=== PATIENT | female | born 1995 | race Two or more races ===

== ENCOUNTER 2019-05-13 15:45 | Observation (INO) | payer MEDICAID | END 2019-05-13 18:40 | disposition home or self-care (01) | DRG 566 | LOC: LDRP 15:45 | PROVIDERS: ADMIT Obstetrics & Gynecology; ATTEND Obstetrics & Gynecology | DX: O24.419 Gestational diabetes mellitus in pregnancy, unspecified control (principal); O36.8190 Decreased fetal movements, unspecified trimester, not applicable or unspecified; Z3A.36 36 weeks gestation of pregnancy | CPT/HCPCS: 59025; 76818; 81002; G0378 ==

== ENCOUNTER 2019-05-23 08:55 | Observation (INO) | payer MEDICAID | END 2019-05-27 14:14 | disposition left against medical advice (07) | DRG 566 | LOC: LDRP 05-27 11:28 | PROVIDERS: ADMIT Obstetrics & Gynecology; ATTEND Obstetrics & Gynecology | DX: O26.893 Other specified pregnancy related conditions, third trimester (principal); Z3A.38 38 weeks gestation of pregnancy | CPT/HCPCS: 76818; G0378 ==

== ENCOUNTER 2019-05-31 09:47 | Observation (INO) | payer MEDICAID ==
[2019-05-31] MEDS ORDERED: PREN-96 PO (10:11)
== END 2019-05-31 10:45 | disposition home or self-care (01) | DRG 566 ==
LOC: LDRP 09:47
PROVIDERS: ADMIT Obstetrics & Gynecology; ATTEND Obstetrics & Gynecology
DX: O24.410 Gestational diabetes mellitus in pregnancy, diet controlled (principal); Z3A.39 39 weeks gestation of pregnancy
CPT/HCPCS: 59025; 81002; 82962; G0378

== ENCOUNTER 2019-06-01 09:20 | Inpatient (IN) | payer MEDICAID ==
[~2019-06-01] VITALS: Ht 154.9 cm; Wt 79.8 kg
[~2019-06-01 09:20] MED LIST: PREN-96 PO
[2019-06-01] MEDS ORDERED: LACTATED RINGER'S 1,000 ML IV SCH (10:00)
[2019-06-01] MEDS ORDERED: NALBUPHINE HCL 10 MG/1ml INJECTION IV PRN (10:00)
[2019-06-01] MEDS ORDERED: LIDOCAINE 2%HCL (LOCAL ANESTH.) INJ 20ML MDV ID PRN (10:00)
[2019-06-01] MEDS ORDERED: PENICILLIN G POT 5MIL/D5 50ML 50 ML IV ONE (10:00)
[2019-06-01] MEDS ORDERED: WITCH HAZEL-GLYCERIN PAD TOP PRN (10:00)
[2019-06-01] MEDS ORDERED: LACT. RINGERS/OXYTOCIN 20UNITS 1,000 ML IV SCH (10:00)
[2019-06-01] MEDS ORDERED: PHISODERM TOP SOLN 240ML BTL TOP PRN (10:00)
[2019-06-01] MEDS ORDERED: DERMOPLAST 60ML BOTTLE TOP PRN (10:00)
[2019-06-01 11:09] LABS: Basophils # (auto) 0.1 uL; Basophils % (auto) 0.7 % (0.0-2.0); Eosinophils # (auto) 0.1 uL; Eosinophils % (auto) 1.1 % (0.0-7.0); Hematocrit 34.1 % (36.0-46.0); Hemoglobin 11.1 g/dL (12.2-16.2); Lymphocytes # (auto) 1.9 uL; Lymphocytes % (auto) 16.2 % (10.0-50.0); Mean Corpuscular Hemoglobin 26.8 pg (28.0-32.0); Mean Corpuscular Hgb Conc. 32.5 g/dL (32.0-36.0); Mean Corpuscular Volume 82.3 fL (80.0-100.0); Monocytes # (auto) 0.7 uL; Monocytes % (auto) 6.1 % (0.0-12.0); Neutrophils # (auto) 8.7 uL; Neutrophils % (auto) 75.9 % (37.0-80.0); Platelet Count (auto) 192 10^3/uL (140-450); Red Blood Cells 4.14 10^6/uL (4.0-5.20); White Blood Cell 11.4 10^3/uL (4.4-10.8)
[2019-06-01 11:13] LABS: Urine Bacteria NONE SEEN /hpf (None Seen); Urine Blood Negative /uL (Negative); Urine Specific Gravity 1.018 (1.001-1.035); Urine WBC 3 /hpf (0 - 5)
[2019-06-01 11:14] LABS: Albumin 2.3 g/dL (3.4-5.0); Calcium 8.6 mg/dL (8.5-10.1); Potassium 3.7 mmol/L (3.5-5.1)
[2019-06-01 11:15] LABS: Alcohol, Urine < 3.0 mg/dL (0-5); Amphetamine Screen, Urine NEGATIVE (NEGATIVE); Barbiturate Scree,Urine NEGATIVE (NEGATIVE); Benzodiazephine Screen, Urine NEGATIVE (NEGATIVE); Cannabinoid Screen, Urine NEGATIVE (NEGATIVE); Cocaine Screen, Urine NEGATIVE (NEGATIVE); Opiate Scree,Urine NEGATIVE (NEGATIVE); Phencyclidine Screen, Urine NEGATIVE (NEGATIVE)
[2019-06-01 11:17] LABS: BUN/Creatinine Ratio 10.8; Bilirubin, Total 0.2 mg/dL (0.2-1.0); Total Protein 6.4 g/dL (6.4-8.2)
[2019-06-01 11:24] LABS: INR < 0.93 (0.9-1.15); Partial Thromboplastin Time 26.8 sec (23.64-32.05)
[2019-06-01] MEDS: PENICILLIN G POTASSIUM 2,500,000 UNITS in D5W 5% 50 ML IV SCH ×3 (15:23→22:43)
[2019-06-01] MEDS ORDERED: fentaNYL CITRATE 100 MCG/2 ML VL IV ONE (17:30)
[2019-06-01] MEDS ORDERED: LIDOCAINE HCL 2 %PF INJ 10ML AMP IJ ONE (17:30)
[2019-06-01] MEDS ORDERED: fentaNYL W ROPIVACAINE 150 ML EPI SCH (17:30)
[2019-06-01] MEDS ORDERED: NALOXONE HCL 0.4 MG/ML VIAL IV ONE (17:30)
[2019-06-01] MEDS ORDERED: ePHEDrine SULFATE 50 MG/ML AMP IV ONE (17:30)
[2019-06-02 07:07] VITALS: BP 119/62
--- NOTE | 2019-06-02 07:08 | NUR ---
Ambulation: Patient OOB with standby assistance by RN. Patient ambulated to bathroom with steady gait. Patient able to void without difficulty. [facility]icare teaching provided with returned demonstration by patient. Clean gown provided and bed linen changed. Patient ambulated back to bed with steady gait and no distress noted.
[2019-06-02] MEDS ORDERED: ACETAMINOPHEN 325 MG TAB PO PRN (07:15)
[2019-06-02 11:00] VITALS: BP 101/70
--- NOTE | 2019-06-02 14:03 | NUR ---
Update given to Dr. Wyman patient had a temp at 0200 of 100.8 and per night RN Jovita Ricks Lease Picker aware. Patient received medication pcn time 4 doses for positive gbs. read all temps to . New orders received d/c all medication penicillin.
[2019-06-02 15:00] VITALS: BP 105/70
[2019-06-02] MEDS: IBUPROFEN 600 MG TAB PO PRN (15:15)
[2019-06-02 22:58] VITALS: BP 109/71
[2019-06-03 02:59] VITALS: BP 94/55
--- NOTE | 2019-06-03 03:05 | NUR ---
Temperature Patient gave to viable baby girl at 0305. At 0202, Jovita JAVIERM was at bedside pushing with this RN anticipating vaginal delivery. Pt c/o "feeling hot", CNM asks for temp to be taken on patient. Temp was 100.8. CNM aware of temp and pt receiving penicillin for positive GBS status. No further orders received.
--- NOTE | 2019-06-03 06:30 | NUR ---
Discharge: Discharge instructions given as ordered. Pt encouraged to follow up with SNUFF DRIER as instructed. All questions and concerns addressed. Patient verbalized understanding. Medication reconciliation completed and copy given to patient. Patient encouraged to prepare to depart unit.
[2019-06-03 07:00] VITALS: BP 111/65
[2019-06-03] MEDS: IBUPROFEN 600 MG TAB PO PRN (07:12)
--- NOTE | 2019-06-03 07:12 | NUR ---
PT MEDICATED WITH MOTRIN 600 MG PO PER ORDERS FOR PAIN TO PERINEUM RATING 5/10.
--- NOTE | 2019-06-03 09:50 | NUR ---
Discharge: Patient taken to vehicle via ambulation refusing wheelchair with all personal belongings, accompanied by staff and family member. No distress noted at time of departure, no adverse changes in status since initial assessment.
[2019-06-03 11:08] LABS: RPR Non Reactive (Non Reactive)
== END 2019-06-03 09:50 | disposition home or self-care (01) | DRG 560 ==
LOC: LDRP 09:20
PROVIDERS: ADMIT Obstetrics & Gynecology; ATTEND Obstetrics & Gynecology
PROC: 10E0XZZ Delivery of Products of Conception, External Approach (ICD-10-PCS; principal; 2019-06-02)
PROC: 0UQGXZZ Repair Vagina, External Approach (ICD-10-PCS; 2019-06-02)
PROC: 3E0R3BZ Introduction of Anesthetic Agent into Spinal Canal, Percutaneous Approach (ICD-10-PCS; 2019-06-02)
PROC: 00HU33Z Insertion of Infusion Device into Spinal Canal, Percutaneous Approach (ICD-10-PCS; 2019-06-02)
DX: O69.81X0 Labor and delivery complicated by cord around neck, without compression, not applicable or unspecified (principal); O71.4 Obstetric high vaginal laceration alone; O42.02 Full-term premature rupture of membranes, onset of labor within 24 hours of rupture; O99.824 Streptococcus B carrier state complicating childbirth; Z37.0 Single live birth; Z3A.39 39 weeks gestation of pregnancy
CPT/HCPCS: 36415; 51702; 59025; 62282; 80053; 80307; 81001; 82962; 84112; 85025; 85610; 85730; 86592; 86850; 86900; 86901; 96361; 96366; G0378; J2540; J2590; J3010; J7060

== ENCOUNTER 2020-09-05 10:05 | Observation (INO) | payer MEDICAID | END 2020-09-05 11:45 | disposition home or self-care (01) | LOC: LDRP 10:05 | PROVIDERS: ADMIT Obstetrics & Gynecology; ATTEND Obstetrics & Gynecology | DX: O48.0 Post-term pregnancy (principal); Z3A.40 40 weeks gestation of pregnancy | CPT/HCPCS: 59025; 76818; 81002; G0378 ==

== ENCOUNTER 2020-09-07 09:09 | Observation (INO) | payer MEDICAID ==
[2020-09-07] MEDS ORDERED: FERR-20 PO ×2 (09:54)
== END 2020-09-07 10:41 | disposition home or self-care (01) ==
LOC: LDRP 09:09
PROVIDERS: ADMIT Obstetrics & Gynecology; ATTEND Obstetrics & Gynecology
DX: O48.0 Post-term pregnancy (principal); O62.9 Abnormality of forces of labor, unspecified; Z3A.40 40 weeks gestation of pregnancy
CPT/HCPCS: 59025; 76818; 81002; G0378

== ENCOUNTER 2020-09-08 22:47 | Inpatient (IN) | payer MEDICAID ==
[~2020-09-08] VITALS: Ht 154.9 cm; Wt 78.9 kg
[~2020-09-08 22:47] MED LIST changes: +FERR-20 PO
[2020-09-08] MEDS ORDERED: BUTORPHANOL TARTRATE 2 MG/1 ML VIAL IV PRN (23:15)
[2020-09-08] MEDS ORDERED: LACTATED RINGER'S 1,000 ML IV SCH ×2 (23:15)
[2020-09-08] MEDS ORDERED: LIDOCAINE 2%HCL (LOCAL ANESTH.) INJ 20ML MDV IJ ONE (23:15)
[2020-09-08] MEDS ORDERED: PHISODERM TOP SOLN 240ML BTL TOP PRN (23:15)
[2020-09-08] MEDS ORDERED: WITCH HAZEL-GLYCERIN PAD TOP PRN (23:15)
[2020-09-08] MEDS ORDERED: DERMOPLAST 60ML BOTTLE TOP PRN (23:15)
[2020-09-08] MEDS ORDERED: TERBUTALINE SULFATE 1 MG/ML 1ML VIAL SC ONE ×2 (23:15)
[2020-09-08 23:53] LABS: Basophils % (auto) 0.3 % (0.0-2.0); Eosinophils # (auto) 0 10 ^3/uL (0-0.8); Mean Corpuscular Volume 72.8 fL (80.0-100.0); Nucleated Red Blood Cells % 0.1 %; Platelet Count (auto) 248 10^3/uL (140-450); White Blood Cell 17.2 10^3/uL (4.4-10.8)
[2020-09-08 23:55] LABS: Basophils # (auto) 0 10 ^3/uL (0-0.2); Hematocrit 28.3 % (36.0-46.0); Hemoglobin 8.9 g/dL (12.2-16.2); Lymphocytes % (auto) 5.7 % (10.0-50.0); Mean Corpuscular Hemoglobin 22.8 pg (28.0-32.0); Mean Corpuscular Hgb Conc. 31.3 g/dL (32.0-36.0); Monocytes # (auto) 0.7 10 ^3/uL (0-1.3); Monocytes % (auto) 4.1 % (0.0-12.0); Neutrophils # (auto) 15.4 10 ^3/uL (1.6-8.6); Neutrophils % (auto) 89.9 % (37.0-80.0); Red Blood Cells 3.89 10^6/uL (4.0-5.20); Red Cell Distribution Width 18.2 % (11.8-14.3)
[2020-09-09 00:11] LABS: Albumin 2.4 g/dL (3.4-5.0); Calcium 8.2 mg/dL (8.5-10.1); Potassium 3.7 mmol/L (3.5-5.1)
[2020-09-09 00:14] LABS: Bilirubin, Total 0.5 mg/dL (0.2-1.0); INR 0.97 (0.9-1.15)
[2020-09-09] MEDS ORDERED: LIDOCAINE HCL 2 %PF INJ 10ML AMP IJ ONE (00:15)
[2020-09-09] MEDS ORDERED: LACTATED RINGER'S 1,000 ML IV ONE ×2 (00:15→01:45)
[2020-09-09] MEDS ORDERED: fentaNYL CITRATE 100 MCG/2 ML VL IV ONE ×2 (00:15→01:45)
[2020-09-09] MEDS ORDERED: ROPIVACAINE HCL 200 ML EPI SCH ×3 (00:15→01:45)
[2020-09-09] MEDS ORDERED: NALOXONE HCL 0.4 MG/ML VIAL IV ONE ×2 (00:15→01:45)
[2020-09-09] MEDS ORDERED: ePHEDrine SULFATE 50 MG/ML AMP IV ONE ×2 (00:15→01:45)
[2020-09-09] MEDS ORDERED: fentaNYL CITRATE 100 MCG/2 ML VL ONE (01:09)
[2020-09-09] MEDS ORDERED: LIDOCAINE 2%HCL (LOCAL ANESTH.) INJ 20ML MDV IJ ONE (01:45)
[2020-09-09] MEDS ORDERED: ONDANSETRON HCL 4 MG/2 ML VIAL IV PRN (02:45)
[2020-09-09 04:14] LABS: Urine Bacteria FEW /hpf (None Seen); Urine Blood Negative /uL (Negative); Urine Mucus FEW (None Seen); Urine Specific Gravity 1.032 (1.001-1.035); Urine WBC 1 /hpf (0 - 5)
[2020-09-09] MEDS ORDERED: LACT. RINGERS/OXYTOCIN 20UNITS 1,000 ML IV ONE (06:00)
--- NOTE | 2020-09-09 06:00 | NUR ---
RECEIVED REPORT, ASSUMED CARE
--- NOTE | 2020-09-09 06:10 | NUR ---
REVIEWED PLAN OF CARE, DISCUSSED GOAL, PAIN SCALE AND AT LENGTH . AT BREAST AND 7/10 LATCH SCORE. PT IS UNCLEAR ON LATCH , PLACEMENT OF [place]BORNS MOUTH. REINFORCEMENT PROVIDED.
--- NOTE | 2020-09-09 07:00 | NUR ---
PATIENT COMPLAINS OF RIGHT FLANK PAIN, LOWER RIGHT ABD PAIN, PAIN AT THE SITE OF HER EPIDURAL. REPOSITIONING , WARM BLANKETS, WATER PROVIDED.
[2020-09-09] MEDS ORDERED: ACETAMINOPHEN 325 MG TAB PO PRN (07:45)
[2020-09-09] MEDS: IBUPROFEN 600 MG TAB PO PRN ×2 (07:45→15:39)
--- NOTE | 2020-09-09 07:45 | NUR ---
DR ZAVALA ON UNIT AND SBAR REPORTED PT C/O PAIN 5-9/10 RIGHT FLANK, AND LOWER RIGHT ABD, 99.9 ORAL TEMPERATURE, WBC 17.4. ORDERS RECEIVED FOR ANCEF 3 DOSES. THIS RN VERBALIZED UNDERSTANDING.
[2020-09-09] MEDS ORDERED: AMMONIA 0.33 ML INHALANT IN ONE (07:53)
--- NOTE | 2020-09-09 08:15 | NUR ---
EDUCATION PROVIDED REGARDING DR QUEZADA ORDERS FOR IV ANTIBIOTICS, PT VERBALIZED UNDERSTANDING
[2020-09-09] MEDS: ceFAZolin 1GM/50ML 50 ML IV SCH ×2 (08:49→15:54)
--- NOTE | 2020-09-09 09:30 | NUR ---
DR GREENFIELD AT BEDSIDE ANSWERED ALL QUESTIONS REGARDING WELL CHECK.
--- NOTE | 2020-09-09 10:30 | NUR ---
Patient OOB with standby assistance by RN. Patient ambulated to bathroom with steady gait. Patient able to void 500CC'S without difficulty. Pericare teaching provided with returned demonstration by patient. Clean gown provided and bed linen changed. Patient ambulated back to bed with steady gait and no distress noted.
--- NOTE | 2020-09-09 10:49 | NUR ---
PT QUESTIONED TO WHY SHE WAS RECEIVING ANTIBIOTICS, REINFORCED EARLIER EDUCATION REGARDING PT TEMPERATURE, ELEVATED WBC, AND FLANK/ABD PAIN PT COMPLAINED OF EARLIER. PT STATED SHE DOESN'T WANT TO TAKE ANTIBIOTICS AND WOULD LIKE TO TALK TO DR ZAVALA. THIS RN STATED SHE WOULD UPDATE MD AND ALSO PT HAD THE RIGHT TO REFUSE ANTIBIOTICS. RECHECKED PATIENTS TEMP AND IT IS 100. F. PT STATED SHE WILL CONTINUE TO TAKE ANTIBIOTICS. THIS RN VERBALIZED UNDERSTANDING
[2020-09-09 11:00] VITALS: BP 101/55
[2020-09-09 15:30] VITALS: BP 106/55
--- NOTE | 2020-09-09 15:45 | NUR ---
REPORT RECEIVED FROM Mona VELÁZQUEZ.
[2020-09-09 19:22] VITALS: BP 100/58
[2020-09-09 23:06] VITALS: BP 113/65
[2020-09-10] MEDS: ceFAZolin 1GM/50ML 50 ML IV SCH (00:07)
[2020-09-10] MEDS: IBUPROFEN 600 MG TAB PO PRN (00:12)
[2020-09-10 03:18] VITALS: BP 115/57
[2020-09-10 06:46] LABS: Basophils # (auto) 0.1 10 ^3/uL (0-0.2); Eosinophils # (auto) 0.1 10 ^3/uL (0-0.8); Eosinophils % (auto) 0.7 % (0.0-7.0); Lymphocytes # (auto) 1.5 10 ^3/uL (0.4-5.4)
[2020-09-10 06:47] LABS: Basophils % (auto) 0.6 % (0.0-2.0); Hemoglobin 7.6 g/dL (12.2-16.2); Lymphocytes % (auto) 11.5 % (10.0-50.0); Mean Corpuscular Hemoglobin 22.5 pg (28.0-32.0); Mean Corpuscular Hgb Conc. 30.5 g/dL (32.0-36.0); Mean Corpuscular Volume 73.6 fL (80.0-100.0); Monocytes # (auto) 0.6 10 ^3/uL (0-1.3); Monocytes % (auto) 4.3 % (0.0-12.0); Neutrophils # (auto) 10.8 10 ^3/uL (1.6-8.6); Neutrophils % (auto) 82.9 % (37.0-80.0); Platelet Count (auto) 189 10^3/uL (140-450); Red Cell Distribution Width 17.9 % (11.8-14.3)
[2020-09-10 07:00] VITALS: BP 112/70
[2020-09-10] MEDS ORDERED: FERROUS SULFATE 325 MG TAB PO SCH (08:00)
--- NOTE | 2020-09-10 09:06 | NUR ---
THIS RN UPDATED PT AND FOB REGARDING DR ROUNDING TIMES AND DISCHARGE INSTRUCTIONS STARTED. PATIENT QUESTIONED "CAN WE JUST LEAVE NOW.?" THIS RN ATTEMPTED TO EXPLAIN THE DISCHARGE PROCESS AND CALCULUS PROFESSOR ROUNDING ALSO. PT INTERJECTED /INTERRUPTED SEVERAL TIMES REGARDING LIVER/JAUNDICE. AGAIN THIS RN ATTEMPTED TO EXPLAIN THE DISCHARGE PROCESS AND THAT THE CALCULUS PROFESSOR WOULD INTERPRET LABS AND SUGGEST PLAN OF CARE. PT DID NOT VERBALIZE UNDERSTANDING. PT AGAIN STATED CAN WE JUST LEAVE. THIS RN STATED YES, THEY WERE FREE TO LEAVE AGAINST MEDICAL ADVICE. PT ASKED AGAIN WHEN WOULD THE CALCULUS PROFESSOR BE HERE. INFORMED PT THAT DR GREENFIELD WOULD BE ROUNDING AROUND HIS USUAL OFF DAY TIME OF 1100 OR 1130AM. PT STATED SHE WANTED TO LEAVE AFTER THE CALCULUS PROFESSOR SAW THE BABY. THIS RN VERBALIZED UNDERSTANDING AND LEFT DISCHARGE PAPER FOR REVIEW .
--- NOTE | 2020-09-10 09:38 | NUR ---
DR MENESES NOTIFIED OF [facility] LABWORK. PER MED HE WILL ADDRESS THIS WHEN HE ROUNDS THIS MORNING
--- NOTE | 2020-09-10 09:39 | NUR ---
COATING INSPECTOR TASHA AT BEDSIDE REVIEWING DISCHARGE INSTRUCTIONS
--- NOTE | 2020-09-10 10:45 | NUR ---
Discharge instructions given as ordered. Pt encouraged to follow up with [facility]CHANDISING MANAGER as instructed. All questions and concerns addressed. Patient verbalized understanding. Medication reconciliation completed and copy given to patient. All required/requested vaccines given and copies of vaccinations given to patient. Patient encouraged to prepare to depart unit.
--- NOTE | 2020-09-10 10:45 | NUR ---
DR GREENFIELD AT BEDSIDE, REVIEWED DISCHARGE INSTRUCTIONS AND INFANT LABS
--- NOTE | 2020-09-10 11:05 | NUR ---
PRESCRIPTION FOR KEFLEX 500 MG PO X 5 DAYS CALLED IN TO [facility] ON [address], LOCATION PER PT'S REQUEST. PHONE NUMBER [phone], SPOKE TO ADELINE.
--- NOTE | 2020-09-10 11:10 | NUR ---
Patient taken to vehicle via wheelchair with all personal belongings, accompanied by staff and family member. No distress noted at time of departure, no adverse changes in status since initial assessment.
--- NOTE | 2020-09-10 11:50 | NUR ---
DR MENESES AT BEDSIDE, REVIEW OF DISCHARGE INSTRUCTIONS AND FOLLOW UP. Addendum: 09/10/20 at 1230 by SARAH HOPSON RN [place] AT BEDSIDE AT 1050 NOT 1150AM
[2020-09-10] MEDS ORDERED: TERBUTALINE SULFATE 1 MG/ML 1ML VIAL SC ONE (14:16)
[2020-09-11 04:06] LABS: RPR Non Reactive (Non Reactive)
== END 2020-09-10 11:10 | disposition home or self-care (01) | DRG 560 ==
LOC: LDRP 22:47 → OBSVTOIN 22:51
PROVIDERS: ADMIT Obstetrics & Gynecology; ATTEND Obstetrics & Gynecology
PROC: 10E0XZZ Delivery of Products of Conception, External Approach (ICD-10-PCS; principal; 2020-09-09)
PROC: 3E0R3BZ Introduction of Anesthetic Agent into Spinal Canal, Percutaneous Approach (ICD-10-PCS; 2020-09-09)
PROC: 00HU33Z Insertion of Infusion Device into Spinal Canal, Percutaneous Approach (ICD-10-PCS; 2020-09-09)
DX: O99.02 Anemia complicating childbirth (principal); O75.3 Other infection during labor; Z20.828 Contact with and (suspected) exposure to other viral communicable diseases; Z37.0 Single live birth; Z3A.40 40 weeks gestation of pregnancy
CPT/HCPCS: 36415; 59025; 59409; 62282; 80053; 81001; 85025; 85610; 85730; 86592; 86850; 86900; 86901; 87426; 94760; 96360; 96361; 96374; G0378; J0690; J2405

== ENCOUNTER → 2020-12-24 | Outpatient (CLI) | payer MEDICAID | END | disposition home or self-care (01) | LOC: Rad HDHVI 16:05 | PROVIDERS: ATTEND Internal Medicine Cardiovascular Disease | DX: R00.2 Palpitations (principal); R07.89 Other chest pain | CPT/HCPCS: 93306 ==

== ENCOUNTER 2022-09-21 07:20 | Inpatient (IN) | payer MEDICAID ==
[~2022-09-21] VITALS: Ht 154.9 cm; Wt 81.2 kg
[2022-09-21] MEDS ORDERED: DERMOPLAST 60ML BOTTLE TOP PRN (08:15)
[2022-09-21] MEDS ORDERED: LIDOCAINE 2%HCL (LOCAL ANESTH.) INJ 10ml MDV IJ PRN (08:15)
[2022-09-21] MEDS ORDERED: WITCH HAZEL-GLYCERIN PAD TOP PRN (08:15)
[2022-09-21] MEDS ORDERED: BUTORPHANOL TARTRATE 2 MG/1 ML VIAL IV PRN ×2 (08:15)
[2022-09-21] MEDS ORDERED: PROMETHAZINE HCL 25 MG/ML 1ML IV PRN (08:15)
[2022-09-21] MEDS ORDERED: PHISODERM TOP SOLN 240ML BTL TOP PRN (08:15)
[2022-09-21 08:34] LABS: Eosinophils # (auto) 0.1 10 ^3/uL (0-0.8); Lymphocytes # (auto) 1.9 10 ^3/uL (0.4-5.4); White Blood Cell 12.2 10^3/uL (4.4-10.8)
[2022-09-21 08:36] LABS: Basophils # (auto) 0.1 10 ^3/uL (0-0.2); Basophils % (auto) 0.7 % (0.0-2.0); Eosinophils % (auto) 0.5 % (0.0-7.0); Hematocrit 29.4 % (36.0-46.0); Hemoglobin 9.1 g/dL (12.2-16.2); Lymphocytes % (auto) 15.5 % (10.0-50.0); Mean Corpuscular Hgb Conc. 31.1 g/dL (32.0-36.0); Mean Corpuscular Volume 73.9 fL (80.0-100.0); Monocytes # (auto) 0.7 10 ^3/uL (0-1.3); Monocytes % (auto) 5.6 % (0.0-12.0); Neutrophils # (auto) 9.5 10 ^3/uL (1.6-8.6); Neutrophils % (auto) 77.7 % (37.0-80.0); Red Blood Cells 3.97 10^6/uL (4.0-5.20)
[2022-09-21 08:47] LABS: INR 0.91 (0.9-1.15); Partial Thromboplastin Time 26.9 sec (24.6-33.4)
[2022-09-21 08:48] LABS: Albumin 2.3 g/dL (3.4-5.0); Calcium 8.7 mg/dL (8.5-10.1); Potassium 3.8 mmol/L (3.5-5.1)
[2022-09-21 08:52] LABS: BUN/Creatinine Ratio 10.3; Bilirubin, Total 0.4 mg/dL (0.2-1.0)
[2022-09-21] MEDS: LACTATED RINGER'S 1,000 ML IV SCH ×2 (09:44→16:49)
[2022-09-21 09:51] LABS: Urine Bacteria NONE SEEN /hpf (None Seen); Urine Blood Negative /uL (Negative); Urine Specific Gravity 1.011 (1.001-1.035); Urine WBC 1 /hpf (0 - 5)
[2022-09-21] MEDS ORDERED: LACT. RINGERS/OXYTOCIN 20UNITS 500 ML IV ONE ×2 (10:00→10:30)
[2022-09-21 10:05] LABS: Alcohol, Urine < 3.0 mg/dL (0-10); Amphetamine Screen, Urine NEGATIVE (NEGATIVE); Barbiturate Scree,Urine NEGATIVE (NEGATIVE); Benzodiazephine Screen, Urine NEGATIVE (NEGATIVE); Cannabinoid Screen, Urine NEGATIVE (NEGATIVE); Cocaine Screen, Urine NEGATIVE (NEGATIVE); Opiate Scree,Urine NEGATIVE (NEGATIVE); Phencyclidine Screen, Urine NEGATIVE (NEGATIVE)
[2022-09-21] MEDS ORDERED: miSOPROStol 50 MCG per PRE-CUT 1/2 TAB PO PRN (13:00)
[2022-09-21] MEDS ORDERED: NALOXONE HCL 0.4 MG/ML VIAL IV ONE (15:45)
[2022-09-21] MEDS ORDERED: LIDOCAINE HCL 2 %PF INJ 10ML AMP IJ ONE (15:45)
[2022-09-21] MEDS ORDERED: LACTATED RINGER'S 1,000 ML IV ONE (15:45)
[2022-09-21] MEDS ORDERED: fentaNYL CITRATE 100 MCG/2 ML VL IV ONE (15:45)
[2022-09-21] MEDS ORDERED: ePHEDrine SULFATE 50 MG/ML AMP IV ONE (15:45)
[2022-09-21] MEDS ORDERED: ROPIVACAINE HCL 200 ML EPI SCH (15:45)
[2022-09-21] MEDS ORDERED: LACT. RINGERS/OXYTOCIN 20UNITS 1,000 ML IV SCH (17:00)
[2022-09-21] MEDS ORDERED: ceFAZolin 1GM/50ML 50 ML IV SCH (19:00)
[2022-09-21] MEDS ORDERED: IBUPROFEN 600 MG TAB PO PRN (22:40)
[2022-09-21] MEDS: ACETAMINOPHEN 325 MG TAB PO PRN (22:48)
[2022-09-21 23:00] VITALS: BP 104/59
[2022-09-22 03:00] VITALS: BP 103/62
[2022-09-22] MEDS ORDERED: ceFAZolin 1GM/50ML 50 ML IV SCH ×2 (03:00→11:00)
[2022-09-22] MEDS: ACETAMINOPHEN 325 MG TAB PO PRN (05:29)
[2022-09-22 07:03] VITALS: BP 112/73
[2022-09-22 08:06] LABS: RPR Non Reactive (Non Reactive)
[2022-09-22 10:40] VITALS: BP 95/57
[2022-09-22 15:30] VITALS: BP 107/77
[2022-09-22 18:30] VITALS: BP 103/58
[2022-09-22 19:41] VITALS: BP 103/58
== END 2022-09-22 19:41 | disposition home or self-care (01) | DRG 560 ==
LOC: LDRP 07:20 → OBSVTOIN 08:00 → LDRP 08:01
PROVIDERS: ADMIT Obstetrics & Gynecology; ATTEND Obstetrics & Gynecology
PROC: 10E0XZZ Delivery of Products of Conception, External Approach (ICD-10-PCS; principal; 2022-09-21)
PROC: 3E0R3BZ Introduction of Anesthetic Agent into Spinal Canal, Percutaneous Approach (ICD-10-PCS; 2022-09-21)
PROC: 00HU33Z Insertion of Infusion Device into Spinal Canal, Percutaneous Approach (ICD-10-PCS; 2022-09-21)
PROC: 0HQ9XZZ Repair Perineum Skin, External Approach (ICD-10-PCS; 2022-09-21)
DX: O60.23X0 Term delivery with preterm labor, third trimester, not applicable or unspecified (principal); Z37.0 Single live birth; O70.0 First degree perineal laceration during delivery; Z3A.38 38 weeks gestation of pregnancy; Z20.822 Contact with and (suspected) exposure to COVID-19
CPT/HCPCS: 36415; 59025; 59409; 62282; 76815; 80053; 80307; 81001; 85025; 85610; 85730; 86592; 86850; 86900; 86901; 87426; 94760; 96360; 96361; 96365; 96366; G0378; J0690; J2001; J2590